=== PATIENT | female | born 1980 | race Caucasian/White ===

== ENCOUNTER 2017-08-23 05:25 | Inpatient (IN) | payer OTHER ==
[2017-08-23] MEDS ORDERED: metroNIDAZOLE 500 MG/100 ML NS IVPB (07:00)
[2017-08-23] MEDS ORDERED: CEFAZOLIN 1 GM INJ (07:20)
[2017-08-23] MEDS ORDERED: ONDANSETRON 4 MG INJ (07:20)
[2017-08-23] MEDS ORDERED: DEXAMETHASONE 4 MG/ML 1 ML INJ (07:20)
[2017-08-23] MEDS ORDERED: MIDAZOLAM 1 MG/ML 2 ML INJ (07:20)
[2017-08-23] MEDS ORDERED: GLYCOPYRROLATE 0.4 MG INJ (07:20)
[2017-08-23] MEDS ORDERED: FENTAnyl 50 MCG/ML VIAL (07:20)
[2017-08-23] MEDS ORDERED: ROCURONIUM 50 MG INJ (07:20)
[2017-08-23] MEDS ORDERED: PROPOFOL 20 ML (07:20)
[2017-08-23] MEDS ORDERED: NEOSTIGMINE 3 MG/3 ML SYRINGE (07:20)
[2017-08-23] MEDS ORDERED: BUPIVACAINE 0.75%/DEXT (SPINAL) 2 ML INJ (07:21)
[2017-08-23] MEDS ORDERED: morphine SULFATE/PF (10 MG/10 ML) INJ (07:21)
[2017-08-23] MEDS ORDERED: EPINEPHrine 1 MG INJ (07:44)
[2017-08-23] MEDS: VASOPRESSIN 20 UNITS INJ (08:15)
[2017-08-23] MEDS ORDERED: EPHEDrine SULFATE 50 MG/5 ML SYG IV (08:30)
[2017-08-23] MEDS ORDERED: KETOROLAC 30 MG INJ IV ×2 (08:30→10:30)
[2017-08-23] MEDS ORDERED: MEPERIDINE 25 MG INJ IV (08:30)
[2017-08-23] MEDS ORDERED: hydrALAzine 20 MG INJ IV (08:30)
[2017-08-23] MEDS ORDERED: MIDAZOLAM 1 MG/ML 2 ML INJ IV (08:30)
[2017-08-23] MEDS ORDERED: TRIMETHOBENZAMIDE 100 MG/ML VIAL IM (08:30)
[2017-08-23] MEDS ORDERED: DIPHENHYDRAMINE 50 MG INJ IV (08:30)
[2017-08-23] MEDS ORDERED: HYDROmorphONE 0.5 MG/0.5 ML SYG IV (08:30)
[2017-08-23] MEDS ORDERED: IPRATROPIUM (NEB) 0.5 MG/2.5 ML AMP HHN (08:30)
[2017-08-23] MEDS ORDERED: ONDANSETRON 4 MG INJ IV (08:30)
[2017-08-23] MEDS ORDERED: ALBUTEROL 0.083% (NEB) 2.5 MG/3 ML AMP HHN (08:30)
[2017-08-23] MEDS ORDERED: LABETALOL HCL 20MG INJ IV (08:30)
[2017-08-23] MEDS ORDERED: OXYCODONE/ACETAMINOPHEN (5/325) TAB PO ×2 (08:30)
[2017-08-23] MEDS ORDERED: NALOXONE (0.4 MG/ML) INJ IV (08:30)
[2017-08-23] MEDS ORDERED: ZOLPIDEM 5 MG TAB PO (08:30)
[2017-08-23] MEDS ORDERED: HYDROmorphONE 1 MG/5 ML IV SYRINGE IV ×3 (08:30)
[2017-08-23] MEDS ORDERED: FENTAnyl 50 MCG/ML VIAL IV ×3 (08:30)
[2017-08-23] MEDS ORDERED: PHENYLephrine (100 MCG/ML) 5ML SYG (09:42)
[2017-08-23] MEDS ORDERED: METOCLOPRAMIDE 10 MG INJ (09:50)
[2017-08-23] MEDS: LACTATED RINGER'S 1,000 ML IV (10:05)
[2017-08-23] MEDS ORDERED: metroNIDAZOLE 500 MG/NS (PMX) 100 ML IVPB (10:30)
[2017-08-23] MEDS ORDERED: ACETAMINOPHEN 1000MG/100ML IV 100 ML IVPB (10:30)
[2017-08-23] MEDS: CEFAZOLIN 2 GM/50 ML (PMX) 50 ML IVPB ×3 (10:30→21:54)
[2017-08-23] MEDS ORDERED: HYDROCODONE/APAP (5/325) TAB PO (10:30)
[2017-08-23] MEDS: ACETAMINOPHEN 1000MG/100ML IV 100 ML IVPB ×3 (12:36→23:59)
[2017-08-23] MEDS: SOD CHLORIDE 0.9% 1,000 ML IV ×2 (14:30→18:58)
[2017-08-23] MEDS: KETOROLAC 15 MG INJ IV ×2 (14:43→18:37)
[2017-08-23] MEDS: metroNIDAZOLE 500 MG/NS (PMX) 100 ML IVPB ×2 (15:31→22:39)
[2017-08-23] MEDS: SOD CHLORIDE 0.9% 500 ML IV (17:09)
[2017-08-23] MEDS: HYDROmorphONE 0.5 MG/0.5 ML SYG IV (21:06)
[2017-08-23] MEDS: ONDANSETRON 4 MG INJ IV (22:55)
[2017-08-24] MEDS: KETOROLAC 15 MG INJ IV (02:58)
[2017-08-24] MEDS: SOD CHLORIDE 0.9% 1,000 ML IV ×3 (05:06→21:40)
[2017-08-24] MEDS: PANTOPRAZOLE 40 MG INJ IV (05:06)
[2017-08-24] MEDS: ACETAMINOPHEN 1000MG/100ML IV 100 ML IVPB ×4 (05:07→23:35)
[2017-08-24 05:22] LABS: ADD MAN DIFF? NO
[2017-08-24 05:23] LABS: ABNORMAL IP MESSAGE 1; HEMATOCRIT 32.3 % (37.0-47.0); HEMOGLOBIN 10.2 g/dl (12.0-16.0); LYMPHOCYTES # 1.7 10^3/ul (0.8-2.9); LYMPHOCYTES % 19.2 % (15.0-51.0); MEAN CORPUSCULAR HGB CONC 31.6 g/dl (32.0-37.0); MEAN CORPUSCULAR VOLUME 88.7 fl (82.0-101.0); MEAN PLATELET VOLUME 13.1 fl (7.4-10.4); MONOCYTE # 0.6 10^3/ul (0.3-0.9); MONOCYTES % 7.3 % (0.0-11.0); NEUTROPHIL # 6.3 10^3/ul (1.6-7.5); NEUTROPHILS % 73.2 % (39.0-77.0); PLATELET COUNT 131 10^3/UL (140-415); RED BLOOD COUNT 3.64 10^6/ul (4.20-5.40); RED CELL DISTRIBUTION WIDTH 13.4 % (11.5-14.5)
[2017-08-24 05:23] LABS: WHITE BLOOD COUNT 8.6 10^3/ul (4.8-10.8)
[2017-08-24] MEDS: CEFAZOLIN 2 GM/50 ML (PMX) 50 ML IVPB (05:28)
[2017-08-24 05:44] LABS: POSITIVE DIFF @See below
[2017-08-24 05:47] LABS: ANION GAP 12 (8-16); BLOOD UREA NITROGEN 9 mg/dl (7-20); CALCIUM 8.1 mg/dl (8.4-10.2); CARBON DIOXIDE 24 mmol/L (21-31); CHLORIDE 108 mmol/L (97-110); GLUCOSE 135 mg/dl (70-220); POTASSIUM 3.6 mmol/L (3.5-5.1); SODIUM 140 mmol/L (135-144)
[2017-08-24] MEDS: metroNIDAZOLE 500 MG/NS (PMX) 100 ML IVPB (06:11)
[2017-08-24] MEDS: HYDROCODONE/APAP (5/325) TAB PO (07:40)
[2017-08-24] MEDS: ENOXAPARIN 40 MG/0.4 ML SYG SC ×2 (09:30→18:50)
[2017-08-24] MEDS: ONDANSETRON 4 MG INJ IV ×2 (11:04→17:04)
[2017-08-24] MEDS ORDERED: HYDROmorphONE 1 MG/ML SYG IV (13:00)
[2017-08-24] MEDS: KETOROLAC 30 MG INJ IV ×2 (13:04→18:40)
[2017-08-24] MEDS: BISACODYL 10 MG SUPP PR (17:05)
[2017-08-24] MEDS ORDERED: ONDANSETRON 4 MG INJ IV (21:30)
[2017-08-24] MEDS: METOCLOPRAMIDE 10 MG INJ IV (21:40)
[2017-08-25] MEDS: PANTOPRAZOLE 40 MG INJ IV (05:17)
[2017-08-25] MEDS: ACETAMINOPHEN 1000MG/100ML IV 100 ML IVPB ×2 (05:17→11:27)
[2017-08-25] MEDS: SOD CHLORIDE 0.9% 1,000 ML IV (05:18)
[2017-08-25] MEDS: METOCLOPRAMIDE 10 MG INJ IV (09:09)
[2017-08-25] MEDS: ENOXAPARIN 40 MG/0.4 ML SYG SC (09:18)
[2017-08-25] MEDS: CEPASTAT LOZENGE MT (11:27)
[2017-08-27] MEDS ORDERED: IBUPROFEN 600 MG TAB PO (07:39)
== END 2017-08-25 14:32 | disposition home or self-care (01) | DRG 743 ==
LOC: REC 05:25 → MS1 11:18
PROC: 0UT90ZZ Resection of Uterus, Open Approach (ICD-10-PCS; principal; 2017-08-23 07:28)
PROC: 0UT70ZZ Resection of Bilateral Fallopian Tubes, Open Approach (ICD-10-PCS; 2017-08-23 07:28)
DX: D25.1 Intramural leiomyoma of uterus (principal); N93.9 Abnormal uterine and vaginal bleeding, unspecified; D25.0 Submucous leiomyoma of uterus; D64.9 Anemia, unspecified; R11.10 Vomiting, unspecified
CPT/HCPCS: 80048; 85025; 86850; 86900; 86901; 87086; 88305